=== PATIENT | female | born 1975 | race Caucasian/White ===

== ENCOUNTER 2022-07-07 00:06 | Emergency (ER) | payer SELFPAY ==
[~2022-07-07] VITALS: Ht 162.6 cm; Wt 99.8 kg
--- NOTE | 2022-07-07 00:06 | NUR ---
PT CHRIS CHRISTIANSON, TAKEN TO CHAIR
[2022-07-07 00:10] VITALS: BP 128/79
[2022-07-07 00:33] VITALS: BP 128/79
--- NOTE | 2022-07-07 00:35 | NUR ---
PATIENT BIB [facility]ICE DEPT. PATIENT EXAMINED BY . PATIENT MEDICALLY CLEARED AND RELEASED IN CUSTODY IN STABLE CONDITION. ORIGINAL PRE-BOOK FORM GIVEN TO OFFICER Alcira Greenfield.Patient discharged with v/s stable. Written and verbal after care instructions given and explained. Patient verbalized understanding. Police with in custody. All questions addressed prior to discharge. Advised to follow up with PMD. IN CUSTODY
== END 2022-07-07 00:29 ==
LOC: MED 00:06
DX: F10.129 Alcohol abuse with intoxication, unspecified (principal); Y90.9 Presence of alcohol in blood, level not specified; V49.88XA Car occupant (driver) (passenger) injured in other specified transport accidents, initial encounter; Y93.89 Activity, other specified; Y92.89 Other specified places as the place of occurrence of the external cause; Y99.8 Other external cause status
CPT/HCPCS: 99283